=== PATIENT | male | born 1960 | race Caucasian/White ===

== ENCOUNTER 2016-08-26 08:39 | Emergency (ER) | payer BC, OTHER ==
--- NOTE | 2016-08-26 08:56 | CPEKG ---
Heart Rate: 70 RR Interval: 857 P-R Interval: 192 QRSD Interval: 92 QT Interval: 420 QTC Interval: 454 P Valentine: 49 QRS Valentine: 1 T Wave Valentine: 17 EKG Severity - NORMAL ECG - EKG Impression: SINUS RHYTHM Electronically Signed By: Saqib Cruz 26-Aug-2016 11:05:12
--- NOTE | 2016-08-26 09:06 | EDPHY ---
H & P Stated Complaint: Generalized weakness - Personal History Current Tetanus/Diphtheria Vaccine: Yes Tetanus Vaccine Date: <10 YRS - Medical/Surgical History Hx Asthma: No Hx Chronic Respiratory Disease: No Hx Diabetes: No Hx Cardiac Disease: No Hx Renal Disease: No Hx Cirrhosis: No Hx Alcoholism: No Hx HIV/AIDS: No Hx Splenectomy or Spleen Trauma: No Other PMH: t cell lymphoma - Social History Smoking Status: Never smoked Time Seen by Provider: 08/26/16 08:41 HPI/ROS: CHIEF COMPLAINT: Generalized weakness HISTORY OF PRESENT ILLNESS: The patient presents the ED with acute generalized weakness times 12 hours. The patient was seen yesterday at [facility] with complaints of mild paresthesias in his bilateral upper extremities and pain biceps and shoulders. He underwent an unremarkable MRI of his cervical spine, chest x-ray and laboratory studies. He was discharged home with a presumptive diagnosis of ulnar neurapraxia. The patient awoke today with severe weakness involving all 4 extremities and inability to ambulate. The patient reportedly had recent travel to [place]. He did have an upper respiratory infection while traveling. He reports he has had a cough for the past 11 days. Additionally the patient did receive a tetanus booster 4 days ago. 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 The patient denies any new prescription medications. The patient denies any known tick bite or insect bite. REVIEW OF SYSTEMS: A comprehensive 10 point review of systems is otherwise negative aside from elements mentioned in the history of present illness. (Saqib Cruz) - Physical Exam Exam: General Appearance: Alert, no distress Eyes: Pupils equal and round no pallor or injection ENT, Mouth: Mucous membranes moist Respiratory: Slight rhonchi noted on exam, otherwise clear to auscultation Cardiovascular: Regular rate and rhythm Gastrointestinal: Abdomen is soft and nontender, no masses, bowel sounds normal Neurological: Alert and oriented x4, cranial nerves 2-12 intact, patient has 5- out of 5 strength noted to the bilateral lower extremities, patient has 5-out of 5 strength noted to the bilateral upper extremities. The patient is noted to be hyperreflexic at the patella and ankle. The patient continues to report decreased sensation to light touch in his right greater than left 5th finger. Skin: Warm and dry, no rashes Musculoskeletal: Neck is supple nontender Extremities: symmetrical, full range of motion (Saqib Cruz) Constitutional: Initial Vital Signs Temperature (C) 36.4 C 08/26/16 08:44 Heart Rate 71 08/26/16 08:44 Respiratory Rate 18 08/26/16 08:44 Blood Pressure 140/98 H 08/26/16 08:44 O2 Sat (%) 95 08/26/16 08:44 O2 Delivery Mode Room Air Allergies/Adverse Reactions: cefazolin sodium [From Ancef] Allergy (Intermediate, Verified 08/26/16 08:43) WHOLE BODY RASH codeine [Codeine] Allergy (Intermediate, Verified 08/26/16 08:43) NAUSEA/VOMITING Home Medications: Medication Instructions Recorded Ativan 08/26/16 Lisinopril 08/26/16 Sertraline HCl 08/26/16 Medical Decision Making - Diagnostics EKG Interpretation: EKG: Complete interpretation has been separately recorded in the [facility] archive. Summary impression: Sinus rhythm (Saqib Cruz) Imaging Results: Imaging Impressions Brain MRI 08/26/16 09:06 Impression: Normal brain. No evidence for mass, stroke or multifocal demyelinating process. 2. MRI of the Cervical Spine (Without and With Contrast) Contrast: 10 mL Gadavist gadolinium contrast, without complication. History: Worsening bilateral arm weakness and numbness, history of Burkitt's lymphoma Technique: Precontrast: sagittal TI, FSE T2 and STIR images. Axial T1 and FSE T2 images. Post Contrast: T1 sagittal and axial images. Findings: Despite premedication, there is patient motion on the scan that makes it extremely difficult to exclude abnormal signal within the normal sized cervical cord. There is no evidence for abnormal gadolinium enhancement or cyst formation within the cord. The craniocervical junction is normal. Cervical alignment is anatomic. The cervical neural canal is congenitally normal in size. Cervical vertebral bodies maintain normal bone marrow signal. The thoracic spine vertebral bodies, beginning at lower T1-T4 demonstrates absent normal marrow signal consistent with fatty infiltration, that may well be related to previous exposure to radiation therapy for the patient's lymphoma. Disk spaces maintain normal height and CSF surrounds the normal shaped cord at all levels. Posterior disk margins are normal except for diffuse mild-moderate disk bulge at C5-C6, which is is associated with severe left and moderate right foraminal encroachment related to uncovertebral joint spurring. There is also an eccentric to the left of midline C3-C4, mild-moderate disk bulge or protrusion that blunts the left lateral recess and is associated with severe left foraminal stenosis. Also at C3-C4 is right foraminal stenosis related to uncovertebral joint spurring. There are no areas of abnormal enhancement either in the cord or in the extraaxial neural canal. There is no evidence for a syrinx or cord neoplasm. There is no evidence for recurrent lymphoma. Impression: 1. Motion artifact precludes definitive clearing of the cervical cord. 2. Degenerative disk and foraminal disease at C3-C4 and C5-C6. Results discussed with Dr. Thomas Cruz. Cervical Spine MRI 08/26/16 09:07 Impression: Normal brain. No evidence for mass, stroke or multifocal demyelinating process. 2. MRI of the Cervical Spine (Without and With Contrast) Contrast: 10 mL Gadavist gadolinium contrast, without complication. History: Worsening bilateral arm weakness and numbness, history of Burkitt's lymphoma Technique: Precontrast: sagittal TI, FSE T2 and STIR images. Axial T1 and FSE T2 images. Post Contrast: T1 sagittal and axial images. Findings: Despite premedication, there is patient motion on the scan that makes it extremely difficult to exclude abnormal signal within the normal sized cervical cord. There is no evidence for abnormal gadolinium enhancement or cyst formation within the cord. The craniocervical junction is normal. Cervical alignment is anatomic. The cervical neural canal is congenitally normal in size. Cervical vertebral bodies maintain normal bone marrow signal. The thoracic spine vertebral bodies, beginning at lower T1-T4 demonstrates absent normal marrow signal consistent with fatty infiltration, that may well be related to previous exposure to radiation therapy for the patient's lymphoma. Disk spaces maintain normal height and CSF surrounds the normal shaped cord at all levels. Posterior disk margins are normal except for diffuse mild-moderate disk bulge at C5-C6, which is is associated with severe left and moderate right foraminal encroachment related to uncovertebral joint spurring. There is also an eccentric to the left of midline C3-C4, mild-moderate disk bulge or protrusion that blunts the left lateral recess and is associated with severe left foraminal stenosis. Also at C3-C4 is right foraminal stenosis related to uncovertebral joint spurring. There are no areas of abnormal enhancement either in the cord or in the extraaxial neural canal. There is no evidence for a syrinx or cord neoplasm. There is no evidence for recurrent lymphoma. Impression: 1. Motion artifact precludes definitive clearing of the cervical cord. 2. Degenerative disk and foraminal disease at C3-C4 and C5-C6. Results discussed with Dr. Thomas Cruz. Lumbar Spine MRI 08/26/16 14:40 Impression: No lumbar epidural abscess identified. Please see the thoracic MRI report. Thoracic Spine MRI 08/26/16 14:41 Impression: No evidence for epidural abscess. Results discussed with Dr. Kemp. Procedures: Procedure: Lumbar puncture. Indication: Weakness, rule out meningitis, evaluate for inflammatory central nervous system condition After verbal informed consent from patient explaining the risks including infection, bleeding, and neurologic damage, a lumbar puncture was performed after the patient was prepped and draped in the usual fashion. The back was anesthetized with 1% lidocaine. Approximately 4 cc of clear fluid was obtained. Opening pressure was not obtained. There were no complications. The procedure was performed by myself. (Saqib Cruz) ED Course/Re-evaluation: The patient presents to the ED with acute muscle weakness. I examined the patient find no obvious tick. I reviewed the results of the patient's cervical spine MRI performed at [facility] yesterday which demonstrated degenerative changes. The patient presents to the ED with acute diffuse weakness and hyperreflexia. Patient's weakness is symmetric, it is 5-out of 5. Consultation was made with Dr. Akbar Hernandez from Neurology and we discussed the planned workup which will include an MRI of the brain and cervical spine with and without contrast. The patient was taken for an MRI of the brain and cervical spine which demonstrates no acute abnormalities. The patient was seen in consultation by Dr. Akbar Hernandez our recommends additional studies including lumbar puncture, Lyme titer, the West Nile testing and MRI of the thoracic and lumbar spine. I performed the lumbar puncture without complication. MRIs of the T and L-spine have been ordered. The patient will be discharged home if these are normal. The results of the imaging studies and lumbar puncture will be reviewed with Dr. Akbar Hernandez from Neurology. The patient will be turned over to Dr. Kemp at shift change pending the results of the MRI studies and a plan to execute the above disposition. (Saqib Cruz) Differential Diagnosis: Differential diagnosis considered includes Guillain-Gatzke syndrome, meningitis, encephalitis, myesthenia gravis. (Saqib Cruz) Other Provider: I was asked by Dr. Cruz to follow-up on results of T/L MRI. At 5pm, these were called to me as negative. I spoke to Dr. Hernandez and informed him of the results. He thinks the patient is safe for discharge home with outpatient follow-up. I re-evaluated the patient. He feels great and is comfortable going home. He understands the etiology of his symptoms is unknown. (Noam Kemp) - Data Points Laboratory Results: Laboratory Results 08/26/16 08:54 08/26/16 08:54 08/26/16 08/26/16 08/26/16 14:31 14:31 08:54 WBC RBC Hgb POC Hgb Hct POC Hct MCV MCH MCHC RDW Plt Count MPV Neut % (Auto) Lymph % (Auto) [place] % (Auto) Eos % (Auto) Baso % (Auto) Nucleat RBC Rel Count Absolute Neuts (auto) Absolute Lymphs (auto) Absolute Monos (auto) Absolute Eos (auto) Absolute Basos (auto) Absolute Nucleated RBC Immature Gran % Immature Gran # ESR POC Sodium Sodium 142 mEq/L mEq/L (134-144) POC Potassium Potassium 4.5 mEq/L mEq/L (3.5-5.2) POC Chloride Chloride 110 mEq/L mEq/L (97-110) Carbon Dioxide 21 mEq/l L mEq/l (22-31) Anion Gap 11 mEq/L mEq/L (8-16) POC BUN BUN 12 mg/dL mg/dL (7-23) Creatinine 0.9 mg/dL mg/dL (0.7-1.3) POC Creatinine Estimated GFR > 60 Glucose 115 mg/dL H mg/dL (70-100) POC Glucose Calcium 9.7 mg/dL mg/dL (8.5-10.4) Magnesium 2.1 mg/dL mg/dL (1.6-2.3) CSF Tube Number 4 CSF Appearance CLEAR (CLEAR) CSF Color COLORLESS (COLORLESS) CSF Supernatant COLORLESS (COLORLESS) CSF WBC 0 /mm3 /mm3 (0-5) CSF RBC 8 /mm3 H /mm3 (0-0) CSF Glucose 57 mg/dL mg/dL (50-75) CSF Total Protein 38 mg/dL mg/dL (12-60) CSF Lyme Disease Ab Pending CSF West Nile IgG Ab Pending CSF West Nile IgM Ab Pending CSF West Nile Interp Pending 08/26/16 08/26/16 08:54 08:52 WBC 6.32 10^3/uL 10^3/uL (3.80-9.50) RBC 4.92 10^6/uL 10^6/uL (4.40-6.38) Hgb 15.7 g/dL g/dL (13.7-17.5) POC Hgb 16.0 gm/dL gm/dL (13.7-17.5) Hct 44.7 % % (40.0-51.0) POC Hct 47 % % (40-51) MCV 90.9 fL fL (81.5-99.8) MCH 31.9 pg pg (27.9-34.1) MCHC 35.1 g/dL g/dL (32.4-36.7) RDW 12.6 % % (11.5-15.2) Plt Count 176 10^3/uL 10^3/uL (150-400) MPV 9.1 fL fL (8.7-11.7) Neut % (Auto) 75.0 % H % (39.3-74.2) Lymph % (Auto) 15.7 % % (15.0-45.0) [place] % (Auto) 6.3 % % (4.5-13.0) Eos % (Auto) 1.6 % % (0.6-7.6) Baso % (Auto) 0.3 % % (0.3-1.7) Nucleat RBC Rel Count 0.0 % % (0.0-0.2) Absolute Neuts (auto) 4.74 10^3/uL 10^3/uL (1.70-6.50) Absolute Lymphs (auto) 0.99 10^3/uL L 10^3/uL (1.00-3.00) Absolute Monos (auto) 0.40 10^3/uL 10^3/uL (0.30-0.80) Absolute Eos (auto) 0.10 10^3/uL 10^3/uL (0.03-0.40) Absolute Basos (auto) 0.02 10^3/uL 10^3/uL (0.02-0.10) Absolute Nucleated RBC 0.00 10^3/uL 10^3/uL (0-0.01) Immature Gran % 1.1 % % (0.0-1.1) Immature Gran # 0.07 10^3/uL 10^3/uL (0.00-0.10) ESR 6 MM/HR MM/HR (0-20) POC Sodium 143 mEq/L mEq/L (134-144) Sodium POC Potassium 4.2 mEq/L mEq/L (3.3-5.0) Potassium POC Chloride 105 mEq/L mEq/L (97-110) Chloride Carbon Dioxide Anion Gap POC BUN 11 mg/dL mg/dL (7-23) BUN Creatinine POC Creatinine 0.8 mg/dL mg/dL (0.7-1.3) Estimated GFR Glucose POC Glucose 122 mg/dL H mg/dL (70-100) Calcium Magnesium CSF Tube Number CSF Appearance CSF Color CSF Supernatant CSF WBC CSF RBC CSF Glucose CSF Total Protein CSF Lyme Disease Ab CSF West Nile IgG Ab CSF West Nile IgM Ab CSF West Nile Interp Microbiology Results: MICROBIOLOGY 08/26/16 14:31 Cerebral Spinal Fluid Gram Stain - Final Medications Given: Discontinued Medications Sodium Chloride (Ns) 1,000 mls @ 0 mls/hr IV EDNOW ONE; Wide Open PRN Reason: Protocol Stop: 08/26/16 09:08 Last Admin: 08/26/16 09:16 Dose: 1,000 mls Lorazepam (Ativan Injection) 1 mg IVP EDNOW ONE Stop: 08/26/16 10:40 Last Admin: 08/26/16 11:09 Dose: 1 mg Lorazepam (Ativan Injection) 1 mg IVP EDNOW ONE Stop: 08/26/16 15:22 Last Admin: 08/26/16 15:21 Dose: 1 mg Point of Care Test Results: 08/26/16 08:52 POC Sodium 143 POC Potassium 4.2 POC Chloride 105 POC BUN 11 POC Creatinine 0.8 POC Glucose 122 H Departure - Departure Disposition: Home, Routine, Self-Care Clinical Impression: Paresthesias, Resolved weakness Condition: Good Instructions: Paresthesia (ED) Additional Instructions: 1. Your workup in the emergency department demonstrates no obvious explanation for acute transient weakness. 2. Please follow up with Dr. Akbar Hernandez from Neurology. 3. Please return to the ED for recurrent weakness, high fever, severe headache , worsening symptoms or other concerns. Referrals: Akbar Hernandez MD [Medical Doctor] - As per Instructions
[2016-08-26] MEDS ORDERED: NS 1,000 ML IV ONE (09:07)
[2016-08-26 09:25] LABS: % IMMATURE GRANULYOCYTES 1.1 % (0.0-1.1); ABSOLUTE IMMATURE GRANULOCYTES 0.07 10^3/uL (0.00-0.10); ADD DIFF? NO; ADD MORPH? NO; ADD SCAN? NO; ATYPICAL LYMPHOCYTE FLAG 30 (0-99); FRAGMENT RBC FLAG 0 (0-99); HEMATOCRIT 44.7 % (40.0-51.0); HEMOGLOBIN 15.7 g/dL (13.7-17.5); LEFT SHIFT FLG 50 (0-99); LIPEMIA HEMOLYSIS FLAG 90 (0-99); MEAN CELL HEMOGLOBIN 31.9 pg (27.9-34.1); MEAN CELL HEMOGLOBIN CONCENTR. 35.1 g/dL (32.4-36.7); MEAN CELL VOLUME 90.9 fL (81.5-99.8); MEAN PLATELET VOLUME 9.1 fL (8.7-11.7); PLATELET CLUMPS FLAG 0 (0-99); PLATELET COUNT 176 10^3/uL (150-400); RED BLOOD CELL COUNT 4.92 10^6/uL (4.40-6.38); RED CELL DISTRIBUTION WIDTH 12.6 % (11.5-15.2)
[2016-08-26 09:32] LABS: ANION GAP 11 mEq/L (8-16); CALCIUM 9.7 mg/dL (8.5-10.4); CARBON DIOXIDE 21 mEq/l (22-31); CHLORIDE 110 mEq/L (97-110); CREATININE 0.9 mg/dL (0.7-1.3); GLOMERULAR FILTRATION RATE > 60; GLUCOSE 115 mg/dL (70-100); POTASSIUM 4.5 mEq/L (3.5-5.2); SODIUM 142 mEq/L (134-144)
[2016-08-26 09:38] LABS: SEDIMENTATION RATE 6 MM/HR (0-20)
[2016-08-26 10:36] VITALS: TEMP 98.4; O2SAT 94
[2016-08-26] MEDS ORDERED: LORazepam 2 MG/ML INJ IVP ONE ×2 (10:39→15:21)
[2016-08-26 11:17] LABS: MAGNESIUM 2.1 mg/dL (1.6-2.3)
[2016-08-26] MEDS ORDERED: GADOBUTROL 10 ML VIAL IVP ONE (11:23)
[2016-08-26 15:05] LABS: PROTEIN, CSF 38 mg/dL (12-60)
[2016-08-26 15:08] LABS: CSF SUPERNATANT COLORLESS (COLORLESS)
[2016-08-26 15:11] LABS: CSF APPEARANCE CLEAR (CLEAR); CSF COLOR COLORLESS (COLORLESS); WBC, CSF 0 /mm3 (0-5)
[2016-08-26] MEDS ORDERED: LORazepam 2 MG/ML INJ ONE (15:18)
[2016-08-26 17:43] VITALS: BP 138/74; PULSE 80; RESP 14
--- NOTE | 2016-08-27 06:31 | GCON ---
[f rep st] CONSULTATION CHIEF COMPLAINT: Generalized weakness. HISTORY OF PRESENT ILLNESS: I was consulted by the emergency department to see Mr. Nguyen, a very pleasant 55-year-old gentleman, in the emergency department for subacute generalized weakness. The patient was in [place] from July 24 to August 07 and had no unusual exposures there. No tick bites at any time. He did have some minor trauma from a sporting activity and fell on this front side. Then he was in [place], [place] just having fun hiking and at a shooting range from August 14 August 16. He then began having a URI on August 15 until present. He had a Tdap vaccination on August 20. Then he began having neurologic symptoms around 5:30 a.m. on August 25. He had left ulnar distribution numbness radiating from his neck with slight neck pain which increased over the morning and then it went into his right digits 4 and 5 in his ulnar distribution by 6 in the morning. He went to the emergency department at [place] and apparently had a MRI of the cervical spine which was negative along with lab studies and was discharged. He then woke up this morning and essentially collapsed when getting out of bed and had to have his help support him. He states he had both upper and lower bilateral extremity weakness. Therefore, he came to the emergency department for further evaluation. Interestingly, over the course of the few hours he has been in our emergency department, the weakness has been resolving. He has had no bulbar symptoms. No shortness of air. 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 Smith. REVIEW OF SYSTEMS: Positive for the recent URI as noted above and recent vaccination with Tdap. Otherwise a 10-point review of system was negative outside of the HPI. PAST MEDICAL HISTORY: T-cell lymphoma in remission, thyroid disorder, and mood disorder. MEDICATIONS: Include SSRI, Synthroid, and a benzodiazepine for sleep. FAMILY HISTORY: There is no heritable neurologic disease. PHYSICAL EXAMINATION: VITAL SIGNS: Blood pressure is 138/74, he is afebrile at 36.9, O2 sats are 94% on room air, heart rate 78 and regular. GENERAL: The patient is in no acute distress. Very pleasant. Nontoxic appearing. HIGHER MENTAL FUNCTION: He is alert and oriented 5/5. He has no aphasia. Cognition is grossly normal. Cranial nerves: Normal 2-7 and 11 and 12. Motor: The patient has no objective weakness on exam. He was 5/5 in all muscles tested in the upper lower extremities. He had 1 to 2+ reflexes throughout his upper and lower extremities including 2+ ankle jerk reflexes bilaterally. He had a negative plantar response bilaterally. Tone was normal. Sensory: There was no sensory level or objective sensory changes. He felt subjectively that there was still a minimal amount of tingling in his ulnar distributions bilaterally in the upper extremities. Coordination: Normal in the upper lower extremities. In terms of gait, had the patient walk without assistance which was fairly steady. There was no ataxia or specific abnormalities to his gait. He felt that something was "off" when walking but could not describe it. DIAGNOSTIC TESTING: The patient had a MRI brain and cervical spine in our emergency department. Brain was entirely normal. There were no areas of stroke , mass, or demyelination. With the cervical exam he did have some motion artifact. Despite this, there is no significant abnormalities seen such as demyelination, recurrent lymphoma, or any neoplastic appearing lesions. There was some degenerative disk disease and foraminal disease at C3 to C4 and C5 to C6. Those studies were done with and without contrast. IMPRESSION AND PLAN: 1. Generalized weakness, resolving. This patient's clinical presentation is unusual. He is having rapidly resolving quadriparesis-type symptomatology without any objective findings on exam at this point. He has no objective weakness or exam abnormalities now. He has present and brisk, symmetric reflexes throughout (normal reflexes). No pathologic upper or lower motor neuron signs on exam. We discussed the broad differential diagnosis. Important negatives are any cerebral lesions or epidural hematoma on the cervical MRI. There has been no tick bites to suggest tick paralysis. He has been examined and no ticks were found. He had no exposure to botulism that he knows of. We discussed the possibility of early Guillain-Wrens syndrome in light of his recent vaccination. This would not be typical due to the rapid resolution of his symptoms (over ~ 2 to 4 hours) and preserved or even brisk reflexes. We discussed West Nile Virus infection. This also seems unlikely as that typically causes a lower motor neuronopathy. Again, he has no lower motor neuron signs on exam or any objective findings at this point. Going forward, we will go ahead and complete neuroimaging with MRI of his thoracic and lumbar spine with and without contrast. Certainly a high thoracic lesion could cause similar symptomatology. We also discussed the possibility of early Guillain-Wrens syndrome with preserved reflexes. Again, with the rapid resolution of symptoms this seems unlikely. Nonetheless, we will proceed with a lumbar puncture to check for elevated protein with relatively normal cells. We will add West Nile Virus and Lyme testing as well. Based on the above comprehensive evaluation, we will make disposition decisions based on his clinical course and test results. Thank you for this consultation. ADDENDUM: L-spine and T-Spine MRI were negative. CSF was normal. By the time the tests were complete, The ED staff found him to be "feeling great and wanting to go home" and his exam apparently remained normal. The patient discharged home and will follow up with me in 2 weeks. He will return to the ED for any recurrent symptoms. /[id number]/MODL MTDD
[2016-09-01 18:46] LABS: MISCELLANEOUS TEST SEE COMMENTS
== END 2016-08-26 17:42 | disposition home or self-care (01) ==
PROC: 009U3ZX Drainage of Spinal Canal, Percutaneous Approach, Diagnostic (ICD-10-PCS; principal; 2016-08-26)
DX: R53.1 Weakness (principal); R20.2 Paresthesia of skin; E86.9 Volume depletion, unspecified
CPT/HCPCS: 82947-QW; 86618-90; 96374; A9585; J2060